=== PATIENT | male | born 1965 | race Caucasian/White ===

== ENCOUNTER 2016-12-27 09:24 | Emergency (ER) | payer OTHER ==
[2016-12-27] MEDS ORDERED: LIPITOR20 MG PO (09:31)
[2016-12-27] MEDS ORDERED: LEXAPRO PO (09:31)
[2016-12-27] MEDS ORDERED: ZYRTEC10 M2 PO (09:32)
[2016-12-27] MEDS ORDERED: APRESOLINE10 M1 PO (09:32)
[2016-12-27] MEDS ORDERED: FLONASE 0.05% N16 G1 (09:32)
[2016-12-27] MEDS ORDERED: FLEXERIL10 MG (09:32)
[2016-12-27] MEDS ORDERED: COREG CR 10MG10 MG PO (09:32)
[2016-12-27] MEDS ORDERED: XANAX0.5 M1 PO (09:33)
[2016-12-27] MEDS ORDERED: SYNTHROID125 PO (09:33)
[2016-12-27] MEDS ORDERED: CHANTIX1 MG PO (09:34)
[2016-12-27] MEDS ORDERED: POTASSIUM99 M1 PO (09:34)
[2016-12-27] MEDS ORDERED: ALBUTEROL17 GM INH (09:34)
[2016-12-27] MEDS ORDERED: GABAPENTIN300 M2 PO (09:39)
[2016-12-27] MEDS ORDERED: COZAAR100 MG PO (09:40)
== END 2016-12-27 10:41 | disposition home or self-care (01) ==
LOC: SED 09:24
DX: S16.1XXA Strain of muscle, fascia and tendon at neck level, initial encounter (principal); M54.5 Low back pain; Z88.0 Allergy status to penicillin; Z79.899 Other long term (current) drug therapy; W18.30XA Fall on same level, unspecified, initial encounter; Y92.410 Unspecified street and highway as the place of occurrence of the external cause
CPT/HCPCS: 96372; 99283; J1885